=== PATIENT | male | born 1990 | race Two or more races ===

== ENCOUNTER 2024-11-27 21:44 | Emergency (ER) | payer MEDICAID, OTHER ==
[~2024-11-27] VITALS: Ht 180.3 cm; Wt 154.9 kg
--- NOTE | 2024-11-27 22:50 | DVH ---
CLINICAL INDICATION: Right shoulder pain TECHNIQUE: XY R SHOULDER 2+ VIEW XRAY Comparison: None FINDINGS/IMPRESSION: : Mild cephalad subluxation of the distal clavicle with respect to the acromion consistent with at nica [place] grade 2 acromioclavicular separation. No definite evidence of fracture. Soft tissues are unremarkable.
--- NOTE | 2024-11-27 22:50 | DVH ---
CHEST RADIOGRAPH Indication: Shoulder injury Technique: Single frontal view of the chest was obtained Comparison: None FINDINGS: Lines and Tubes: None Lungs: No focal consolidation. Pleura: No effusion. No pneumothorax. Cardiomediastinal contours: Unremarkable Bones: No acute osseous abnormality. IMPRESSION: 1. No acute cardiopulmonary disease.
[2024-11-27] MEDS ORDERED: ACET650T12 PO (23:05)
[2024-11-27] MEDS ORDERED: IBUP-1454 PO (23:05)
[2024-11-27 23:33] VITALS: BP 138/88; PULSE 101; RESP 18; TEMP 98.9; O2SAT 94
[2024-11-27] MEDS: traMADol HCL 50 MG TAB PO ONE (23:39)
[2024-11-27] MEDS: KETOROLAC TROMETH 30 MG/ML 1ML VIAL IM ONE (23:39)
[2024-11-27] MEDS: ACETAMINOPHEN 325 MG TAB PO ONE (23:40)
--- NOTE | 2024-11-27 23:52 | ED.PDOC ---
Musculoskeletal HPI Comments 34-year-old male, with no significant history, presents with right shoulder pain status post mechanical fall injury. Patient endorses on falling out a proximally hour ago onto his right shoulder, we will playing soccer. He suspects on dislocating his shoulder. Denies any loss of sensation, weakness, additional injuries, tingling sensation, or further associated symptoms at this time. Chief Complaint: Upper Extremity Time Seen by MD: 22:20 Reviewed Notes: Nurses Notes, Medications, Allergies Allergies: Coded Allergies: NO KNOWN ALLERGIES (Unverified , 11/27/24) Home Meds Active Scripts Ibuprofen (Ibuprofen) 600 Mg Tab, 1 TAB PO TID for 5 Days, #15 TAB Prov:ALEK NI MD 11/27/24 Acetaminophen (Acetaminophen Er) 650 Mg Tab, 650 MG PO TIDPRN PRN for 3 Days, #9 TAB Prov:ALEK NI MD 11/27/24 Information Source: Patient Mode of Arrival: Ambulatory Location: Right Extremity Location: Shoulder Timing: Hours Prehospital treatment: None Severity: Moderate Able to Move Extremity: Yes Pain: Moderate Review of Systems: REVIEW OF SYSTEMS: No fever, no chills, or fatigue HEENT: No sore throat, no earache, no congestion, no neck pain. Cardiac: No chest pain. No palpitations. Lungs: No shortness of breath, no cough. GI: No nausea, no vomiting, no diarrhea, no constipation, no abdominal pain : No dysuria, frequency, or urgency. No hematuria. Musculoskeletal: Right shoulder pain, no joint swelling, no extremity edema. Skin: No rash, no itching. Neuro: No headache, no dizziness, no weakness Vital Signs Vital Signs Date Time Temp Pulse Resp B/P (MAP) Pulse Ox O2 Delivery O2 Flow Rate FiO2 11/27/24 22:05 98.3 100 16 144/78 (100) 95 98.3 Physical Exam General: Awake, alert and oriented. No acute distress. Skin: Skin in warm, dry and intact. Appropriate color for ethnicity. HEENT: The head is normocephalic and atraumatic. Conjunctivae are clear without exudates or hemorrhage. Sclera is non-icteric. EOM are intact. No signs of nystagmus. Eyelids are normal in appearance without swelling or lesions. Oral mucosa is pink and moist Neck: The neck is supple with normal range of motion. No JVD. Cardiac: Heart rate and rhythm are normal. No murmurs, gallops, or rubs are auscultated. Respiratory: No signs of respiratory distress. Lung sounds are clear in all lobes bilaterally without rales, rhonchi, or wheezes. Abdominal: Abdomen is soft, non-tender without distention, guarding or rigidity. Bowel sounds are present and normoactive in all four quadrants. Extremities: Tenderness to coracoid process with no obvious signs of deformity or decreased range of motion. Upper and lower extremities are atraumatic in appearance without deformity or edema. Neurological: The patient is awake, alert and oriented to person, place, and time with normal speech. Speech is clear. There is no facial asymmetry. Psychiatric: Appropriate mood and affect. Good judgement and insight. Past Medical History Past Medical History (Other): morbid obesity Surgical History: Denies all surgeries Family History Family History: Unknown Social History Smoker: Non-Smoker Alcohol: Denies ETOH Use Drugs: Denies Drug Use Lives In: Home Was a procedure done? Was a procedure done?: No Differential Diagnosis EXT Differential Diagnosis: Fracture, Sprain, Dislocation, Contusion, Strain X-Ray, Labs, Meds, VS Vital Signs Date Time Temp Pulse Resp B/P (MAP) Pulse Ox O2 Delivery O2 Flow Rate FiO2 11/27/24 22:05 98.3 100 16 144/78 (100) 95 98.3 Time of 1ST Reevaluation: 22:50 Reevaluation 1ST: Unchanged Patient Education/Counseling: Treatment, Need For Follow Up Family Education/Counseling: No Family Present Departure 1 Departure Time of Disposition: 23:50 Impression: Ruled Out: Separation of AC joint Disposition: 01 HOME / SELF CARE / HOMELESS Condition: Stable Additional Instructions: ED DISCHARGE INSTRUCTIONS Instructions: Please read all instructions provided in this packet carefully. Although you have been discharged from the Emergency Department, this does not mean that you have a "clean bill of health". It is possible that you are in the process of developing a serious illness. This is why you must return to the ED without fail if any new or worsening symptoms (especially if your symptoms include chest pain, trouble breathing, abdominal pain, fever, headache, confusion, trouble seeing, or trouble walking) It is also very important that you see a primary care doctor within the next 3-5 days to follow up. You may need a referral to see a reconciliation specialist. Wear the sling until you follow up with the primary care provider If you are unable to get an appointment, return to the ED for re-evaluation. patriziaulder Separation Table of Contents Condition Basics Credits Condition Basics What is a shoulder separation? A shoulder separation is the partial or complete separation of two parts of the shoulder. It occurs when the outer end of the collarbone (clavicle) separates from the end (acromion) of the shoulder blade because of torn ligaments. This injury occurs most often from a blow to the top of the shoulder or a fall onto the shoulder. A shoulder separation is classified according to how severely these ligaments are injured: In a type I injury, the acromioclavicular (AC) ligament is partially torn, but the coracoclavicular (CC) ligament is not injured. In a type II injury, the AC ligament is completely torn, and the CC ligament is either not injured or partially torn. The collarbone is partially from the acromion. In a type III injury, both the AC and CC ligaments are completely torn. The collarbone and the acromion are completely . There are three further classifications, types IV through , which are uncommon. What causes it? A direct blow to the top of the shoulder or a fall onto the shoulder, such as a fall from a bicycle, can cause a shoulder separation. What are the symptoms? Symptoms of a shoulder separation include pain when the injury occurs. Limited shoulder movement as well as swelling and bruising may follow. The small joint over the shoulder may be tender. A deformity is possible at the outer end of the collarbone. There may be a bump on top of the shoulder. How is it diagnosed? A shoulder separation is diagnosed through a medical history, a physical exam, and an X-ray. Your doctor will check: For a deformity or bump. The range of motion of your shoulder and other joints. Blood flow, by taking your pulse and assessing your skin color and temperature. For damage to your nerves or blood vessels. The muscle strength of your shoulder and arm. For broken shoulder bones or damage to the tendons in the shoulder (rotator cuff tear). Your doctor will probably X-ray your injured shoulder and possibly your uninj ured shoulder to help diagnose the severity of the separation. How is a shoulder separation treated? Treatment of a shoulder separation depends on its severity. For a type I or II injury, you support your shoulder with a sling. You typically need the sling until the discomfort decreases (a few days to a week). Early physical therapy to strengthen your shoulder and regain range of motion is important for recovery and to prevent frozen shoulder (adhesive capsulitis), a condition that limits shoulder motion . You can return to normal exercises and activities as your pain and other symptoms go away. Treatment for type III injuries can vary. Some doctors treat them with a sling and physical therapy, while others feel surgery may be needed. Type IV through injuries should be evaluated for possible surgery. Credits for Shoulder Separation Current as of: January 06, 2024 e-Prescriptions Ibuprofen (Ibuprofen) 600 Mg Tab 1 TAB PO TID for 5 Days, #15 TAB Prov: ALEK NI MD 11/27/24 Acetaminophen (Acetaminophen Er) 650 Mg Tab 650 MG PO TIDPRN PRN for 3 Days, #9 TAB Prov: ALEK NI MD 11/27/24 Discharged With: Self Comments Extensive evaluation was performed in attempt to identify or rule out: (See differential diagnosis section) The following tests were ordered, and results were reviewed by me and discussed with patient: (See diagnostic results section) The following test were independently interpreted by me: N/A I reviewed and agreed with the following test results read by other providers: Right shoulder x-ray I reviewed the following notes from the pt's past medical encounters: N/A Additional information was gathered from interviewing the following independent historians: N/A Discussion of management or test interpretation with external physician/other qualified health long term acute care registered nurse: N/A Addressed [ ]one or more chronic illnesses with severe exacerbation, progression, or side effects of treatment: [ ]an acute or chronic illness that poses a threat to life or bodily function: [ ] Decision regarding hospitalization or escalation of hospital level of care: Risk and benefits of admission for further treatment of patient's condition was considered. Due to patient's current clinical condition, high risk of decline and poor outcome if discharged and need for further inpatient management and monitoring, patient will be admitted to the hospital. Drug therapy requiring intensive monitoring for toxicity: N/A Parenteral controlled substances: N/A Decision regarding elective major surgery with identified patient or procedure risk factors: N/A Decision regarding emergency major surgery: N/A Decision not to resuscitate or to de-escalate care because of poor prognosis: N/A Diagnosis or treatment significantly limited by social determinants of health: N/A Decision regarding hospitalization or escalation of hospital level of care: Risks and benefits of admission for further treatment of patient's condition was considered however due to patient's stable condition patient will be discharged to follow up closely or return to care for worsening of condition or inability to follow up. Critical Care Note Critical Care Time?: No Stability Stability form required: No Heart Score Heart Score: Heart Score Response (Comments) Value History N/A 0 EKG N/A 0 Age N/A 0 Risk Factors N/A 0 Troponin N/A 0 Total 0 I personally scribed for ALEK NI MD ([email or web address]) on 11/27/24 at 23:52. Electronically submitted by Harjit Wisdom ([email or web address]). ALEK NI MD Nov 27, 2024 23:52
== END 2024-11-27 23:54 | disposition home or self-care (01) ==
LOC: ER 21:44
DX: S43.101A Unspecified dislocation of right acromioclavicular joint, initial encounter (principal); E66.01 Morbid (severe) obesity due to excess calories; W19.XXXA Unspecified fall, initial encounter; Y93.66 Activity, soccer; Y92.89 Other specified places as the place of occurrence of the external cause; Y99.8 Other external cause status
CPT/HCPCS: 71045; 73030